=== PATIENT | female | born 1995 | race African-American/Black ===

== ENCOUNTER 2020-03-02 22:31 | Inpatient (IN) | payer OTHER ==
[~2020-03-02] VITALS: Ht 170.2 cm; Wt 99.8 kg
[2020-03-02] MEDS ORDERED: LORAZEPAM 1 MG TABLET ONE (22:46)
[2020-03-02] MEDS ORDERED: LORAZEPAM 1 MG TABLET PO ONE (23:00)
--- NOTE | 2020-03-02 23:19 | NUR ---
BIBCAREGIVERS AT THE FACILTY THAT SHE IS STAYING AT. TO BED 5. AAOX4. BREATHING EVEN AND UNLABORED BUT SATTING AT 83-85% ON RA. AMBULATORY. BROUGHT IN FOR SOB. PER CAREGIVER, PT WAS COVID POSITIVE 2 WEEKS AGO. PT WAS TESTED AGAIN YESTERDAY WITH NEGATIVE RESULT BUT POSITIVE FOR ANTIBODIES PER CAREGIVER REPORT. MD WAS AT THE BEDSIDE FOR EVAL. ORDERS RECEIVED, NOTED AND CARRIED OUT. CAREGIVERS AT BEDSIDE TO KEEP PT CALM.
--- NOTE | 2020-03-02 23:30 | NUR ---
PT'S O2 SAT O2 85% ON RA BUT PT DOES NOT WANT TO PUT ON OXYGEN. PT IS NOT HAVING RESP DISTRESS, BREATHING EVEN AND UNLABORED. TALKING IN FULL SENTENCES
--- NOTE | 2020-03-03 00:01 | NUR ---
unable to check bp. pt keeps removing the cuff.
[2020-03-03 00:12] LABS: BASOPHILS # (AUTO) 0.1 /CMM (0.0-0.2); BASOPHILS % (AUTO) 1.8 % (0.0-2.0); EOSINOPHILS % (AUTO) 0.6 % (0.0-6.0); HEMATOCRIT 36 % (33-45); HEMOGLOBIN 11.4 g/dL (11.5-14.8); LYMPHOCYTES # (AUTO) 0.6 /CMM (0.8-4.8); LYMPHOCYTES % (AUTO) 14.4 % (20.0-44.0); MEAN CORPUSCULAR HGB CONC 32 g/dl (31.0-36.0); MEAN CORPUSCULAR VOLUME 88 fL (82-100); MONOCYTES # (AUTO) 0.2 /CMM (0.1-1.30); NEUTROPHILS # (AUTO) 3.4 /CMM (1.8-8.9); NEUTROPHILS % (AUTO) 78.2 % (43.0-81.0); PLATELET COUNT (AUTO) 288 /CMM (150-450); RED BLOOD CELL COUNT(AUTO) 4.07 MIL/uL (4.0-5.2); WHITE BLOOD COUNT (AUTO) 4.3 K/uL (4.3-11.0)
[2020-03-03 00:19] LABS: CALCIUM, SERUM 8.7 mg/dL (8.5-10.1); CREATININE 0.9 mg/dL (0.6-1.3); POTASSIUM 3.6 mmol/L (3.5-5.1)
[2020-03-03 00:25] LABS: BILIRUBIN,TOTAL 0.1 mg/dL (0.2-1.0)
[2020-03-03] MEDS ORDERED: CEFTRIAXONE 500 MG VIAL IV ONE (00:30)
[2020-03-03] MEDS ORDERED: AZITHROMYCIN 500 MG in IV D5W 250 ML IV ONE (00:30)
[2020-03-03] MEDS ORDERED: CEFTRIAXONE 500 MG VIAL ONE (00:40)
[2020-03-03] MEDS ORDERED: AZITHROMYCIN 500 MG VIAL ONE (00:41)
[2020-03-03 01:01] LABS: C-REACTIVE PROTEIN 7.6 mg/dL (0.0-0.9)
--- NOTE | 2020-03-03 01:14 | NUR ---
DR. TERRELL SPEAKING WITH DR. JEFFREY REGARDING ADMISSION
[2020-03-03] MEDS ORDERED: DIVA500T2 PO (01:32)
[2020-03-03] MEDS ORDERED: MAGN400O21 PO (01:32)
[2020-03-03] MEDS ORDERED: TYL2T PO (01:32)
[2020-03-03] MEDS ORDERED: MAG355OR44 PO ×2 (01:32)
[2020-03-03] MEDS ORDERED: TRAZ-257 PO (01:32)
[2020-03-03] MEDS ORDERED: RISP4TAB4 PO (01:32)
[2020-03-03] MEDS ORDERED: LITH300T PO (01:32)
[2020-03-03] MEDS ORDERED: LOPE2CAP40 PO (01:32)
[2020-03-03] MEDS ORDERED: QUET100T PO (01:32)
[2020-03-03] MEDS ORDERED: ASCO100058 PO (01:32)
[2020-03-03] MEDS ORDERED: LITH150C PO (01:32)
[2020-03-03] MEDS ORDERED: LURA80TA PO (01:32)
[2020-03-03] MEDS ORDERED: ENOXAPARIN SODIUM 40 MG/0.4 ML DISP.SYRIN SQ SCH ×2 (02:00→21:00)
[2020-03-03] MEDS ORDERED: DEXAMETHASONE SOD PHOSPHATE 10 MG/ML VIAL IJ SCH (02:00)
[2020-03-03] MEDS ORDERED: ZOSYN IVPB 3.375 G in IV D5W 50ml IV ONE (02:00)
[2020-03-03] MEDS ORDERED: Z GUARD REMEDY 2 OZ OINT TP PRN (02:00)
[2020-03-03] MEDS ORDERED: MAG HYDROX/AL HYDROX/SIMETH 30 ML UDC PO PRN (02:00)
[2020-03-03] MEDS ORDERED: ACETAMINOPHEN 325 MG TABLET PO PRN (02:00)
[2020-03-03] MEDS ORDERED: ONDANSETRON HCL/PF 4 MG/2 ML VIAL IVP PRN (02:00)
[2020-03-03] MEDS ORDERED: HYDROCODONE/APAP 5/325MG TABLET PO PRN (02:00)
[2020-03-03] MEDS ORDERED: MAGNESIUM HYDROXIDE 30 ML UDC PO PRN (02:00)
--- NOTE | 2020-03-03 02:36 | NUR ---
PATIENT NOT WILLING TO KEEP BLOOD PRESSURE CUFF ON, NOR THE EKG LEADS. PATIENT IS UNCOOPERATIVE, BUT REDIRECTABLE TO THE BED.
[2020-03-03] MEDS ORDERED: PIPERACILLIN /TAZOBACTAM 3.375 G VIAL IV ONE (02:45)
[2020-03-03] MEDS ORDERED: IV NS 0.9% 250 ML IV PRN (03:00)
--- NOTE | 2020-03-03 03:02 | NUR ---
Patient brought up to assigned room for JOHNATHAN.
--- NOTE | 2020-03-03 03:02 | NUR ---
REPORT GIVEN TO JANEY YO FOR JOHNATHAN.
--- NOTE | 2020-03-03 03:02 | NUR ---
grandmother, kory [phone]
--- NOTE | 2020-03-03 03:15 | NUR ---
PATIENT AMUBLATED TO ROOM WITH ED STAFF FOLLOWING PATIENT. PATIENT IS A/O X 3 AND AUTISTIC. PATIENT REFUSING TO ALLOW BLOOD PRESSURE TO BE TAKEN, PULSE OX TO STAY ON, AND TELEMETRY TO BE PLACED. PATIENT IS SUSPECTED AND TRIES TO LEAVE THE ROOM. PATIENT NEEDS 1:1 SITTER TO KEEP PATIENT CALM AND IN THE ROOM. PATIENT IS NOT IN ANY RESPIRATORY DISTRESS, BUT IS ANXIOUS ABOUT BEING LEFT ALONE IN THE ROOM. CHARGE NURSE KIANNA IS SITTING IN ROOM CURRENTLY WITH PATIENT. BED IN LOW LOCK POSITION WITH RAILS UP X 2. CALL LIGHT WITHIN REACH AND ALL SAFETY MEASURES ENSURED AND CARRIED OUT. WILL CONTINUE TO MONITOR.
--- NOTE | 2020-03-03 03:19 | NUR ---
caregiver, christel [phone]
--- NOTE | 2020-03-03 07:18 | NUR ---
PATIENT REMAINS IN NOACUTE DISTRESS IN BED. PATIENT DID NOT HAVE ANY SIGNIFICANT CHANGE IN CONDITION DURING SHIFT. PATIENT CONTINUES TO REFUSE CARE.
--- NOTE | 2020-03-03 07:30 | NUR ---
APRN OPENING NOTES RECEIVED PT ALERT AND AWAKE X2-3, AND WITH EPISODES OF ATTEMPTING TO LEAVE UNIT. PT WITH HX OF DEMENTIA. REORIENTATION TO REALITY AND PROVIDING CONSTANT INSTRUCTIONS NOT TO LEAVE UNIT PROVIDED. NOT IN ANY ACUTE DISTRESS AT THIS TIME. RESPIRATION IS EVEN AND EASY WITH NO SOB. WAS ABLE TO TAKE VITAL SIGNS THIS AM BUT DECLINES TO HAVE BP CUFF IN PLACE. BED KEPT IN LOWEST POSITION FOR SAFETY. WILL CONTINUE TO MONITOR.
[2020-03-03 08:37] VITALS: BP 143/70
[2020-03-03] MEDS: PIPERACILLIN /TAZOBACTAM 3.375 G in IV D5W 100 ML IV SCH ×2 (09:57→17:33)
[2020-03-03] MEDS: DIVALPROEX SODIUM 500 MG TABLET.DR PO SCH ×2 (14:17→20:16)
[2020-03-03] MEDS: QUETIAPINE FUMARATE 100 MG TABLET PO SCH ×2 (14:18→17:35)
[2020-03-03] MEDS: LITHIUM CARBONATE (300 MG CAP) 300 MG CAPSULE PO SCH ×2 (14:23→20:16)
[2020-03-03 16:00] VITALS: BP 143/70
--- NOTE | 2020-03-03 17:30 | NUR ---
TRANSFERRED TO [facility] FOR JOHNATHAN.
--- NOTE | 2020-03-03 18:49 | NUR ---
POTATO CHIP MAKER CLOSING NOTES PT REMAINS ALERT AND AWAKE X2-3, STILL WITH EPISODES OF ATTEMPTING TO LEAVE UNIT. REORIENTED AND ABLE TO PROVIDE PT TEACHING IN SAFETY AND RISKS OF LEAVING. PT COOPERATIVE. PT WITH HX OF DEMENTIA. NOT IN ANY ACUTE DISTRESS AT THIS TIME. RESPIRATION IS EVEN AND EASY WITH NO SOB. REFUSED LEASE OUT MAN DESPITE OF EXPLANATION OF RISKS AND BENEFITS. CONTINUES TO REFUSE CARE. BED KEPT IN LOWEST POSITION FOR SAFETY. ON ONE ON ONE SITTER. WILL ENDORSE TO NEXT SHIFT.
--- NOTE | 2020-03-03 19:50 | NUR ---
DRUM FILLER NOTES, PATIENT IS A/O X 3 AND AUTISTIC, BREATHING EVEN AND UNLABORED, NO SOB/ACUTE DISTRESS NOTED, AT ROOM AIR, REFUSING TELEMETRY, 1:1 SITTER, DRY AND CLEAN, ALL NEEDS PROVIDED, ALL SAFETY MEASURES IN OBSERVED, BED LOCKED AND LOW POSITION WITH RAILS UP X 2, CALL LIGHT WITHIN REACH WILL CONTINUE TO MONITOR CLOSELY.
[2020-03-03 20:00] VITALS: BP 111/65
[2020-03-03] MEDS ORDERED: DEXAMETHASONE SOD PHOSPHATE 10 MG/ML VIAL IV SCH (21:00)
[2020-03-03] MEDS ORDERED: GUAIFENESIN/D-METHORPHAN HB 5 ML UDC PO PRN (21:30)
[2020-03-03] MEDS ORDERED: QUETIAPINE FUMARATE 100 MG TABLET PO SCH (22:00)
[2020-03-04] VITALS: BP 110/65
[2020-03-04] MEDS: PIPERACILLIN /TAZOBACTAM 3.375 G in IV D5W 100 ML IV SCH ×3 (00:13→17:00)
[2020-03-04 04:00] VITALS: BP 145/90
--- NOTE | 2020-03-04 07:30 | NUR ---
RN OPENING NOTES PATIENT RECEIVED IN ROOM, STANDING BY DOOR WITH SITTER. PATIENT HAS NO S/S OF DISTRESS AT THIS TIME BUT IS REPEATEDLY ASKING ABOUT GOING HOME. PATIENT A/OX4 WITH HISTORY OF AUTISM AND SCHIZOPHRENIA. PATIENT CURRENTLY REFUSING TO KEEP NASAL CANNULA ON, OXYGEN SATURATION 95% ON ROOM AIR. PATIENT ALSO REFUSING TELE BOX. PATIENT ABLE TO AMBULATE AND MAKE NEEDS KNOWN. SKIN INTACT, BRP. PATIENT CONTINUES ON A REGULAR DIET. ALL SAFETY MEASURES IN PLACE, SITTER WITH PATIENT AT THIS TIME. WILL CONTINUE TO MONITOR AND PROVIDE TREATMENT.
[2020-03-04 08:00] VITALS: BP 118/72
[2020-03-04] MEDS: LITHIUM CARBONATE (300 MG CAP) 300 MG CAPSULE PO SCH (09:16)
[2020-03-04] MEDS: DIVALPROEX SODIUM 500 MG TABLET.DR PO SCH (09:16)
[2020-03-04] MEDS: QUETIAPINE FUMARATE 100 MG TABLET PO SCH ×2 (09:16→17:06)
[2020-03-04 11:17] LABS: BASOPHILS % (AUTO) 0.4 % (0.0-2.0); HEMATOCRIT 37 % (33-45); HEMOGLOBIN 11.5 g/dL (11.5-14.8); LYMPHOCYTES # (AUTO) 0.8 /CMM (0.8-4.8); LYMPHOCYTES % (AUTO) 14.6 % (20.0-44.0); MEAN CORPUSCULAR HGB CONC 31 g/dl (31.0-36.0); MEAN CORPUSCULAR VOLUME 89 fL (82-100); MONOCYTES # (AUTO) 0.5 /CMM (0.1-1.30); MONOCYTES % (AUTO) 8.5 % (2.0-12.0); NEUTROPHILS # (AUTO) 4.2 /CMM (1.8-8.9); NEUTROPHILS % (AUTO) 76.5 % (43.0-81.0); PLATELET COUNT (AUTO) 358 /CMM (150-450); RED BLOOD CELL COUNT(AUTO) 4.17 MIL/uL (4.0-5.2); WHITE BLOOD COUNT (AUTO) 5.5 K/uL (4.3-11.0)
--- NOTE | 2020-03-04 11:39 | NUR ---
FELIPE YO INFORMED OF (+) COVID RESULT
[2020-03-04 11:50] LABS: MAGNESIUM 2.7 mg/dL (1.8-2.4); PHOSPHORUS 2.8 mg/dL (2.5-4.9); POTASSIUM 4.2 mmol/L (3.5-5.1)
[2020-03-04 12:00] VITALS: BP 105/68
[2020-03-04 16:00] VITALS: BP 109/55
--- NOTE | 2020-03-04 18:30 | NUR ---
DISCHARGE NOTE PATIENT WHEELED TO MAIN ENTRANCE. PATIENT WAS PICKED UP BY HEDY, STRUCTURAL [employer] TRADES WORKER FROM [facility] ([facility]). PATIENT IN STABLE CONDITION AT TIME OF DISCHARGE. ALL PAPERWORK AND BELONGINGS TAKEN WITH PATIENT AND HEDY. EDUACTION ON CARE PROVIDED TO PATIENT AND HEDY.
== END 2020-03-04 18:35 | DRG 137 ==
LOC: ER 22:38 → ICU 03-03 01:24 → TELE1 03-03 17:11
PROVIDERS: ADMIT Internal Medicine; ATTEND Internal Medicine
DX: U07.1 COVID-19 (principal); F41.9 Anxiety disorder, unspecified; E46 Unspecified protein-calorie malnutrition; G93.41 Metabolic encephalopathy; J12.89 Other viral pneumonia; J96.01 Acute respiratory failure with hypoxia; F84.0 Autistic disorder; G47.33 Obstructive sleep apnea (adult) (pediatric); E66.9 Obesity, unspecified; Z68.34 Body mass index [BMI] 34.0-34.9, adult; F25.0 Schizoaffective disorder, bipolar type
CPT/HCPCS: 36415; 71045-TC; 80048-TC; 80053-TC; 82728-TC; 83615-TC; 83735-TC; 84100-TC; 84702-TC; 85025-TC; 86140-TC; 87040-TC; 87081-TC; G0378; J0456; J0696; J1100; J1650; J2405; J2543; J7050; J7060; U0003